=== PATIENT | female | born 1960 | race Caucasian/White ===

== ENCOUNTER → 2024-06-18 | Outpatient (REF) | payer OTHER ==
[2024-06-18 12:16] LABS: BASO # 0.1 10^3/uL (0.0-0.2); EOS % 0.5 % (0.0-3.0); HEMATOCRIT 49.5 % (36.0-47.0); HEMOGLOBIN 15.9 g/dl (12.0-15.5); LYMPH # 0.9 10^3/uL (1.5-5.0); LYMPH % 14.7 % (24.0-44.0); MEAN CORPUSCULAR HEMOGLOBIN 31.1 pg (27.0-33.0); MEAN CORPUSCULAR HGB CONC 32.1 g/dl (32.0-36.5); MEAN CORPUSCULAR VOLUME 96.9 fl (80.0-96.0); MONO # 0.4 10^3/uL (0.0-0.8); MONO % 6.5 % (2.0-8.0); NEUTROPHILS # 4.8 10^3/uL (1.5-8.5); NEUTROPHILS % 77.1 % (36.0-66.0); PLATELET COUNT, AUTOMATED 237 10^3/uL (150-450); RED BLOOD COUNT 5.11 10^6/uL (4.00-5.40); WHITE BLOOD COUNT 6.3 10^3/uL (4.0-10.0)
[2024-06-18 13:07] LABS: THYROID STIMULATING HORMONE 2.006 uIU/ML (0.55-4.78)
[2024-06-18 13:14] LABS: ALKALINE PHOSPHATASE 66 U/L (35-104); ALT/SGPT 40 U/L (7.0-40); AST/SGOT 22 U/L (<34); BILIRUBIN,TOTAL 0.3 MG/DL (0.3-1.2); BLOOD UREA NITROGEN 13 MG/DL (9-23); CALCIUM LEVEL 9.7 MG/DL (8.3-10.6); CARBON DIOXIDE LEVEL 26 MMOL/L (20-31); CHLORIDE LEVEL 110 MMOL/L (98-107); CHOLESTEROL LEVEL 230 MG/DL (<200); CHOLESTEROL RISK RATIO 2.85 (<5); GLOMERULAR FILTRATION RATE 59.2 (>45); GLUCOSE, FASTING 88 MG/DL (74-106); HDL CHOLESTEROL 80.5 MG/DL (>40); LDL CHOLESTEROL 129.3 MG/DL (<100); NON-HDL-C 149.5 MG/DL; POTASSIUM SERUM 4.2 MMOL/L (3.5-5.1); SODIUM LEVEL 145 MMOL/L (136-145); TOTAL PROTEIN 7.1 G/DL (5.7-8.2); TRIGLYCERIDES LEVEL 101 MG/DL (<150)
[2024-06-18 13:48] LABS: HEMOGLOBIN A1c 5.2 % (4.0-6.0)
== END ==
LOC: M LAB REF 11:38
PROVIDERS: ATTEND Nurse Practitioner Family
DX: R63.6 Underweight (principal); R53.83 Other fatigue; Z11.9 Encounter for screening for infectious and parasitic diseases, unspecified

== ENCOUNTER → 2024-08-01 | Outpatient (CLI) | payer MEDICARE | LOC: M WHC 07:48 | PROVIDERS: ATTEND Nurse Practitioner Family | DX: Z12.31 Encounter for screening mammogram for malignant neoplasm of breast (principal); M25.552 Pain in left hip; R92.323 Mammographic fibroglandular density, bilateral breasts; M85.89 Other specified disorders of bone density and structure, multiple sites ==

== ENCOUNTER → 2024-08-16 | Outpatient (REF) | payer MEDICARE ==
[2024-08-16 13:10] LABS: BASO % 0.6 % (0.0-1.0); EOS # 0.1 10^3/uL (0.0-0.5); EOS % 1.2 % (0.0-3.0); HEMATOCRIT 44.9 % (36.0-47.0); HEMOGLOBIN 14.8 g/dl (12.0-15.5); LYMPH # 1.2 10^3/uL (1.5-5.0); LYMPH % 17.2 % (24.0-44.0); MEAN CORPUSCULAR HEMOGLOBIN 31.8 pg (27.0-33.0); MEAN CORPUSCULAR VOLUME 96.4 fl (80.0-96.0); MONO # 0.7 10^3/uL (0.0-0.8); MONO % 10.4 % (2.0-8.0); NEUTROPHILS # 4.7 10^3/uL (1.5-8.5); NEUTROPHILS % 70.3 % (36.0-66.0); PLATELET COUNT, AUTOMATED 210 10^3/uL (150-450); RED BLOOD COUNT 4.66 10^6/uL (4.00-5.40); WHITE BLOOD COUNT 6.7 10^3/uL (4.0-10.0)
== END ==
LOC: M LAB REF 12:01
PROVIDERS: ATTEND Nurse Practitioner Family
DX: D75.1 Secondary polycythemia (principal)

== ENCOUNTER → 2024-09-14 | Outpatient (CLI) | payer MEDICARE | LOC: M PLAIMG 13:21 | PROVIDERS: ATTEND Nurse Practitioner Family | DX: R01.1 Cardiac murmur, unspecified (principal) ==

== ENCOUNTER → 2024-09-24 | Outpatient (CLI) | payer MEDICARE | LOC: M SLEEP 20:00 | PROVIDERS: ATTEND Physician Assistant | DX: R06.83 Snoring (principal) ==

== ENCOUNTER → 2024-12-31 | Outpatient (CLI) | payer MEDICARE | LOC: M PLAIMG 08:57 | PROVIDERS: ATTEND Nurse Practitioner Family | DX: M25.552 Pain in left hip (principal) ==

== ENCOUNTER → 2025-02-22 | Outpatient (CLI) | payer MEDICARE ==
[2025-02-22 14:45] LABS: BASO # 0.1 10^3/uL (0.0-0.2); BASO % 0.9 % (0.0-1.0); EOS # 0.1 10^3/uL (0.0-0.5); EOS % 0.9 % (0.0-3.0); LYMPH # 1.2 10^3/uL (1.5-5.0); LYMPH % 18.3 % (24.0-44.0); MONO # 0.5 10^3/uL (0.0-0.8); MONO % 8.3 % (2.0-8.0); NEUTROPHILS # 4.6 10^3/uL (1.5-8.5); NEUTROPHILS % 71.3 % (36.0-66.0); PLATELET COUNT, AUTOMATED 248 10^3/uL (150-450)
[2025-02-22 15:14] LABS: ALT/SGPT 24 U/L (7.0-40); AST/SGOT 23 U/L (<34); CALCIUM LEVEL 9.7 MG/DL (8.3-10.6); CARBON DIOXIDE LEVEL 25 MMOL/L (20-31); CHLORIDE LEVEL 111 MMOL/L (98-107); CREATININE FOR GFR 1.15 MG/DL (0.55-1.30); GLOMERULAR FILTRATION RATE 52.5 (>45); POTASSIUM SERUM 4.3 MMOL/L (3.5-5.1); SODIUM LEVEL 145 MMOL/L (136-145); VITAMIN B12 LEVEL 974 PG/ML (211-911)
[2025-02-22 15:15] LABS: RHEUMATOID FACTOR QUANT 4.4 IU/ML (<14)
[2025-02-25 15:48] LABS: ANA PATTERN 2 Nuclear, Nucleolar; ANA TITER 2 1:40 titer (NEGATIVE)
== END ==
LOC: M PLALAB 09:27
PROVIDERS: ATTEND Psychiatry & Neurology Neurology
DX: R51.9 Headache, unspecified (principal)

== ENCOUNTER → 2025-03-12 | Outpatient (CLI) | payer MEDICARE ==
[2025-03-12 13:36] LABS: CREATININE FOR GFR 1.05 MG/DL (0.55-1.30); GLOMERULAR FILTRATION RATE 58.6 (>45)
== END ==
LOC: M PLALAB 08:56
PROVIDERS: ATTEND Psychiatry & Neurology Neurology
DX: I10 Essential (primary) hypertension (principal)

== ENCOUNTER → 2025-03-28 | Outpatient (CLI) | payer MEDICARE ==
[2025-03-28 11:49] LABS: C REACTIVE PROTEIN QUANTITATIV < 0.50 MG/DL (<1.0)
[2025-04-01 15:03] LABS: SSA SJOGRENS A <1.0 NEG AI (<1.0 NEG); SSB SJOGRENS B <1.0 NEG AI (<1.0 NEG)
[2025-04-05 12:23] LABS: HLA-B27 Negative (Negative)
== END ==
LOC: M LAB 10:32
PROVIDERS: ATTEND Nurse Practitioner Family
DX: R69 Illness, unspecified (principal)